=== PATIENT | male | born 1965 | race Caucasian/White ===

== ENCOUNTER 2017-06-17 08:01 | Day surgery (SDC) | payer MEDICARE, MEDICAID, SELFPAY | END 2017-06-17 10:45 | disposition home or self-care (01) | PROVIDERS: Family Provider Internal Medicine Adolescent Medicine; Visit Provider Internal Medicine | DX: I63.9 Cerebral infarction, unspecified (principal); I48.0 Paroxysmal atrial fibrillation; E11.9 Type 2 diabetes mellitus without complications; I11.9 Hypertensive heart disease without heart failure; I25.9 Chronic ischemic heart disease, unspecified | CPT/HCPCS: 33282; 96365; 96372; C1764 ==

== ENCOUNTER → 2017-12-21 07:57 | Outpatient (CLI) | payer MEDICARE, MEDICAID, SELFPAY ==
[2017-12-21 13:38] LABS: Basophils # 0.1 K/mm3 (0-0.2); Basophils % 1.1 % (0.1-2.0); Eosinophils # 0.3 K/mm3 (0.0-0.4); Hematocrit 47.1 % (42.0-52.0); Hemoglobin 14.5 g/dL (14.1-18.0); Lymphocytes % 32.2 K/mm3 (10-50); Mean Corpuscular HGB Conc 30.8 g/dL (31.8-35.4); Mean Corpuscular Hemoglobin 26.7 pg (27.0-31.2); Mean Corpuscular Volume 86.5 fl (80-94); Mean Platelet Volume 7.5 fl (7.4-10.4); Monocytes # 0.4 K/mm3 (0.1-1.0); Monocytes % 5.8 % (1.7-9.3); Neutrophils # 3.6 K/mm3 (1.8-7.8); Neutrophils % 56.9 % (37.0-80.0); Platelet Count 305 K/mm3 (142-424); Red Blood Count 5.45 M/mm3 (4.60-6.20); Red Cell Distribution Width 13.4 % (11.5-17.5); White Blood Count 6.3 K/mm3 (4.8-10.8)
[2017-12-21 13:41] LABS: Alanine Aminotransferase 23 U/L (12-78); Albumin Level 3.4 gm/dL (3.4-5.0); Albumin/Globulin Ratio 1.1 (1.1-1.8); Alkaline Phosphatase 68 U/L (46-116); Anion Gap 13.9 mEq/L (5-15); Aspartate Amino Transferase 10 U/L (15-37); Bilirubin,Total 0.2 mg/dL (0.2-1.0); Blood Urea Nitrogen 11 mg/dL (7-18); Calcium 8.6 mg/dL (8.5-10.1); Carbon Dioxide 25 mmol/L (21.0-32.0); Chloride 107 mmol/L (98-107); Chol/HDL Ratio 7.2 (1-3.5); Cholesterol 239 mg/dL (140-200); Creatinine,Serum 1.05 mg/dL (0.70-1.30); Estimated Glomerular Filt Rate 74 ml/min (>60); GFR (African American) 89 ML/MIN (>60); Globulin 3.1 gm/dl (1.3-3.2); Glucose 139 mg/dL (74-106); HDL Cholesterol 33 mg/dL (27-67); LDL Cholesterol 145 mg/dL (0-130); Potassium 3.9 mmoL/L (3.5-5.1); Sodium 142 mmol/L (136-145); Total Protein,Serum 6.5 gm/dL (6.4-8.2); Triglycerides 303 mg/dL (30-200); VLDL Cholesterol 61 mg/dL (0-40)
[2017-12-21 13:58] LABS: Hemoglobin A1C 6.8 % (0.0-7.0)
== END ==
PROVIDERS: Visit Provider Internal Medicine Adolescent Medicine
DX: I25.10 Atherosclerotic heart disease of native coronary artery without angina pectoris (principal); E11.69 Type 2 diabetes mellitus with other specified complication; E78.5 Hyperlipidemia, unspecified
CPT/HCPCS: 36415; 80053; 80061; 83036; 85025

== ENCOUNTER 2017-12-26 07:00 | Outpatient (RCR) | payer MEDICARE, MEDICAID, SELFPAY ==
--- NOTE | 2017-12-23 08:05 | HMH.OTOPEV ---
OT Inpatient Evaluation Rehab OT Outpatient Eval Start: 12/23/17 07:38 Freq: Status: Active Protocol: Document 12/23/17 07:39 TFRY (Rec: 12/23/17 08:03 TFRY [id number]) Electronically Signed By Ivana Uribe, OT 12/23/17 07:39 Outpatient Therapy Subjective History Subjective History THIS IS 52 YEAR OLD RIGHT HANDED MALE REFERRED TO OCCUPATIONAL THERAPY FOR LEFT SHOULDER PAIN. PATIENT REPORTS THAT HE FELLL ON THIS SHOULDER APPROXIMATELY 5 MONTHS AGO WHEN HE HAD HIS STROKE AND IT IS HAS BEEN BOTHERING EVER SINCE. HIS STROKE AFFECTED HIS LEFT SIDE. Chief Complaint Pain Symptom Type Sharp Symptoms Relieved By Rest/Positioning Prior Functional Limitations None Sleeping Current Functional Limitations Reaching Lifting Housework Sleeping Symptom Description Intermittent Level of pain today (0-10) 0 Pain scale - at its best (0-10) 0 Pain scale - at its worst (0-10) 10 Shoulder/Elbow Eval Shoulder Objective Measurements Palpation Tenderness tenderness shoulder exam standard left Shoulder Palpation Findings Tenderness Shoulder ROM Left Shoulder ROM Limitations Muscle Weakness Shoulder Abduction Active Range of 50 Motion (degrees) Shoulder Abduction Passive Range of WFL Motion (degrees) Shoulder Flexion Active Range of Motion 70 (degrees) Query Text: Shoulder Flexion Passive Range of Motion WFL (degrees) Shoulder External Rotation Active Range 20 of Motion (degrees) Shoulder External Rotation Passive Range WFL of Motion (degrees) Shoulder Internal Rotation Active Range WFL of Motion (degrees) Shoulder Internal Rotation Passive Range WFL of Motion (degrees) Shoulder Extension Active Range of 25 Motion (degrees) Shoulder Extension Passive Range of WFL Motion (degrees) pain with active ROM shoulder exam left standard decreased ROM shoulder exam standard left Shoulder MMT Shoulder Abduction Strength Grade 3+ Fair+ Shoulder Extension Strength Grade 3+ Fair+ Shoulder External Rotation Strength 3 Fair Grade Shoulder Internal Rotation Strength 3+ Fair+ Grade Shoulder Strength Patient Testing Sitting Position
== END 2017-12-26 15:01 | disposition home or self-care (01) ==
LOC: OT 07:00
PROVIDERS: Family Provider Internal Medicine Adolescent Medicine; PCP Internal Medicine; Visit Provider Internal Medicine Adolescent Medicine
DX: M25.512 Pain in left shoulder (principal)
CPT/HCPCS: 97033; 97110; 97165

== ENCOUNTER → 2017-12-27 11:06 | Outpatient (CLI) | payer MEDICARE, MEDICAID, SELFPAY ==
--- NOTE | 2017-12-27 11:13 | XR_ITS ---
XR forearm RT 2V HISTORY: Posttraumatic pain ITS.REASON: RT ARM PAIN ORDERING PHYSICIAN: Kevyn Donnelly MD PATIENT AGE: 52 years COMPARISON: None FINDINGS: There is widening of the distal aspect of the radius consistent with an old fracture. Patient's pain is reported to be at the mid aspect of the ulna. Old avulsion injury also involves the tip of the ulnar styloid. No acute fracture or dislocation. IMPRESSION: Old distal radial and ulnar fracture, no acute finding
== END ==
PROVIDERS: PCP Internal Medicine Adolescent Medicine; Visit Provider Internal Medicine Adolescent Medicine
DX: M79.601 Pain in right arm (principal)
CPT/HCPCS: 73090

== ENCOUNTER → 2017-12-29 08:54 | Outpatient (CLI) | payer MEDICARE, MEDICAID, SELFPAY ==
--- NOTE | 2017-12-29 08:57 | XR_ITS ---
XR wrist RT min 3V HISTORY pain and swelling following injury ITS.REASON: possible fracture ORDERING PHYSICIAN: Pipe Holland MD PATIENT AGE: 52 years Comparison: 12/27/2017 FINDINGS: No acute displaced fracture is evident. There is some widening of the distal aspect of the radius laterally which could be due to an old fracture. There is lobularity along the anterior aspect of the distal radius. A small area of soft tissue calcification noted along the ulnar aspect of the wrist dorsally. There are also be an old ulnar styloid process fracture. IMPRESSION: 1. Suspected old distal radial and ulnar fracture. No definite acute fracture
== END ==
PROVIDERS: PCP Internal Medicine Adolescent Medicine; Visit Provider Orthopaedic Surgery
DX: M25.531 Pain in right wrist (principal)
CPT/HCPCS: 73110

== ENCOUNTER → 2018-09-20 09:20 | Outpatient (CLI) | payer MEDICARE, MEDICAID, SELFPAY ==
[2018-09-20 14:04] LABS: Basophils # 0.1 K/mm3 (0-0.2); Basophils % 0.9 % (0.1-2.0); Eosinophils # 0.2 K/mm3 (0.0-0.4); Eosinophils % 4.4 % (0.1-12.0); Hematocrit 42.5 % (42.0-52.0); Hemoglobin 13.8 g/dL (14.1-18.0); Lymphocytes # 2.1 K/mm3 (0.7-4.5); Lymphocytes % 39.9 % (10-50); Mean Corpuscular HGB Conc 32.5 g/dL (31.8-35.4); Mean Corpuscular Hemoglobin 27.7 pg (27.0-31.2); Mean Corpuscular Volume 85.4 fl (80-94); Mean Platelet Volume 7.5 fl (7.4-10.4); Monocytes # 0.3 K/mm3 (0.1-1.0); Monocytes % 5.2 % (1.7-9.3); Neutrophils # 2.6 K/mm3 (1.8-7.8); Neutrophils % 49.6 % (37.0-80.0); Platelet Count 306 K/mm3 (142-424); Red Blood Count 4.98 M/mm3 (4.60-6.20); Red Cell Distribution Width 13.5 % (11.5-17.5); White Blood Count 5.3 K/mm3 (4.8-10.8)
[2018-09-20 14:32] LABS: Alanine Aminotransferase 37 U/L (12-78); Albumin Level 3.7 gm/dL (3.4-5.0); Albumin/Globulin Ratio 1.1 (1.1-1.8); Alkaline Phosphatase 67 U/L (46-116); Anion Gap 13.9 mEq/L (5-15); Aspartate Amino Transferase 14 U/L (15-37); Bilirubin,Total 0.3 mg/dL (0.2-1.0); Blood Urea Nitrogen 14 mg/dL (7-18); Calcium 8.9 mg/dL (8.5-10.1); Carbon Dioxide 27 mmol/L (21.0-32.0); Chloride 105 mmol/L (98-107); Chol/HDL Ratio 6.5 (1-3.5); Cholesterol 220 mg/dL (140-200); Creatinine,Serum 0.83 mg/dL (0.70-1.30); Estimated Glomerular Filt Rate 97 ml/min (>60); GFR (African American) 117 ML/MIN (>60); Globulin 3.3 gm/dl (1.3-3.2); Glucose 127 mg/dL (74-106); HDL Cholesterol 34 mg/dL (27-67); LDL Cholesterol 135 mg/dL (0-130); Potassium 3.9 mmoL/L (3.5-5.1); Sodium 142 mmol/L (136-145); Triglycerides 257 mg/dL (30-200); VLDL Cholesterol 51 mg/dL (0-40)
[2018-09-20 14:45] LABS: Hemoglobin A1C 7.3 % (0.0-7.0)
== END ==
PROVIDERS: PCP Internal Medicine Adolescent Medicine; Visit Provider Internal Medicine Adolescent Medicine
DX: E11.9 Type 2 diabetes mellitus without complications (principal); Z79.4 Long term (current) use of insulin
CPT/HCPCS: 36415; 80053; 80061; 83036; 85025

== ENCOUNTER → 2019-07-13 15:00 | Outpatient (CLI) | payer MEDICARE, MEDICAID, SELFPAY ==
--- NOTE | 2019-07-13 15:05 | MR_ITS ---
PROCEDURE: MR HEAD/BRAIN WO CON CLINICAL INDICATION: LEFT HEMIPARESIS Eight ischemic strokes, left-sided hemiplegia, slurred speech, facial drooping, confusion, off balance COMPARISON: [facility], [place] MRI-BRAIN W/WO from 02/08/[address] head/brain wo con from 08/10/2018 TECHNIQUE: Routine multiplanar multi echo sequences are performed without gadolinium enhancement. FINDINGS: There is a small area of increased diffusion signal in the right frontal parietal junction deep white matter consistent with a small acute lacunar infarction measuring approximately 2-3 mm.. No midline shift, mass effect, intracranial hemorrhage, or hydrocephalus is evident. Scattered periventricular and subcortical T2 white matter hyperintensities are present consistent with ischemic gliotic change from microvascular disease. The cerebellopontine angles, cerebellum, and brainstem are unremarkable. There is partial empty sella as a normal variant. The optic chiasm, corpus callosum, and craniocervical junction have an unremarkable appearance. No mastoid effusion or sinus air-fluid level. IMPRESSION: There is a small focus of increased diffusion signal in the deep white matter of the right frontal parietal junction suggesting a small acute lacunar infarction with scattered periventricular ischemic gliotic changes. Dictated by: Forest Arias MD 07/14/2019 07:16 Electronically signed by Forest Arias MD in [place] 07/14/2019 07:16
== END ==
PROVIDERS: PCP Internal Medicine Adolescent Medicine; Visit Provider Internal Medicine Adolescent Medicine
DX: G81.94 Hemiplegia, unspecified affecting left nondominant side (principal)
CPT/HCPCS: 70551

== ENCOUNTER → 2019-07-17 13:25 | Outpatient (CLI) | payer MEDICARE, MEDICAID, SELFPAY | PROVIDERS: PCP Internal Medicine Adolescent Medicine; Visit Provider Internal Medicine Adolescent Medicine | DX: I25.118 Atherosclerotic heart disease of native coronary artery with other forms of angina pectoris; I63.9 Cerebral infarction, unspecified; R42 Dizziness and giddiness | CPT/HCPCS: 93270 ==

== ENCOUNTER → 2021-01-27 08:33 | Outpatient (CLI) | payer MEDICARE, MEDICAID, SELFPAY ==
[2021-01-27] VITALS (8 sets, daily range): BP systolic 144–152; BP diastolic 71–91; PULSE 67–78; RESP 14–18; TEMP 36.8–36.9; O2SAT 94–97
== END ==
PROVIDERS: PCP Internal Medicine Adolescent Medicine; Visit Provider Internal Medicine Adolescent Medicine
DX: U07.1 COVID-19 (principal)
CPT/HCPCS: 96365